=== PATIENT | male | born 1980 | race Caucasian/White ===

== ENCOUNTER → 2016-06-10 | Outpatient (CLI) | payer BC ==
[2016-06-10 16:50] LABS: HEMATOCRIT 42.5 % (42-52); MEAN CELL VOLUME 86.2 fL (80-100); MEAN CORPUSCULAR HEMOGLOBIN 29.6 pg (25-34); MEAN CORPUSCULAR HGB CONC 34.4 g/dl (32-36); MEAN PLATELET VOLUME 12.1 fL (7.4-10.4); PLATELET COUNT 207 K/uL (130-400); RED BLOOD COUNT 4.93 M/uL (4.7-6.1); WHITE BLOOD COUNT 8.28 K/uL (4.8-10.8)
[2016-06-10 16:58] LABS: ALT/SGPT 20 U/L (12-78); BLOOD UREA NITROGEN 11 mg/dl (7-18); BUN/CREATININE RATIO 11.5 (10-20); CALCIUM 9.3 mg/dl (8.5-10.1); CARBON DIOXIDE 29 mmol/L (21-32); CHLORIDE 103 mmol/L (98-107); CREATININE 0.97 mg/dl (0.60-1.40); GLUCOSE 95 mg/dl (70-99); SODIUM 138 mmol/L (136-145); URINE APPEARANCE TURBID (CLEAR); URINE BILIRUBIN NEG (NEG); URINE COLOR YELLOW; URINE EPITHELIAL CELL AUTO 0-5 /lpf (0-5); URINE NITRITE NEG (NEG); URINE SPECIFIC GRAVITY 1.025 (1.000-1.030); UROBILINOGEN NEG (NEG)
[2016-06-10 17:00] LABS: MANUAL MICROSCOPIC REQUIRED? NO; REVIEW REQ? NO
[2016-06-10 17:01] LABS: ALB/GLOB RATIO 1.4 (0.9-2); ALKALINE PHOSPHATASE 73 U/L (45-117); AST/SGOT 24 U/L (15-37)
== END | disposition home or self-care (01) ==
LOC: C.LABBC 15:19
PROVIDERS: ATTEND Physician Assistant
DX: R10.9 Unspecified abdominal pain (principal)

== ENCOUNTER → 2017-06-03 | Outpatient (CLI) | payer OTHER ==
[2017-06-03 14:39] LABS: BASO % 0.2 %; BASO ABS # 0.02 K/uL (0-0.2); EOS % 1.7 %; EOS ABS # 0.15 K/uL (0-0.5); HEMATOCRIT 43.7 % (42-52); HEMOGLOBIN 14.7 g/dL (14.0-18.0); IG# 0.01 K/uL (0.00-0.02); LYMPH % 14.7 %; LYMPH ABS # 1.27 K/uL (1.2-3.4); MEAN CELL VOLUME 88.5 fL (80-100); MEAN CORPUSCULAR HEMOGLOBIN 29.8 pg (25-34); MEAN CORPUSCULAR HGB CONC 33.6 g/dl (32-36); MEAN PLATELET VOLUME 12.1 fL (7.4-10.4); MONO % 8.4 %; MONO ABS # 0.73 K/uL (0.11-0.59); NEUT % 74.9 %; NEUT ABS # 6.47 K/uL (1.4-6.5); PLATELET COUNT 193 K/uL (130-400); RED CELL DISTRIBUTION WIDTH CV 13.1 % (11.5-14.5); RED CELL DISTRIBUTION WIDTH SD 42.1 fL (36.4-46.3); WHITE BLOOD COUNT 8.65 K/uL (4.8-10.8)
[2017-06-03 15:06] LABS: BLOOD UREA NITROGEN 13 mg/dl (7-18); CALCIUM 9.1 mg/dl (8.5-10.1); CARBON DIOXIDE 28 mmol/L (21-32); CREATININE 1.17 mg/dl (0.60-1.40); GLUCOSE 95 mg/dl (70-99); POTASSIUM 3.9 mmol/L (3.5-5.1); SODIUM 136 mmol/L (136-145)
== END | disposition home or self-care (01) ==
LOC: C.LAB1850 13:05
PROVIDERS: ATTEND Nurse Practitioner Adult Health
DX: R82.90 Unspecified abnormal findings in urine (principal); M54.5 Low back pain; R31.9 Hematuria, unspecified

== ENCOUNTER → 2017-06-04 | Outpatient (CLI) | payer OTHER ==
--- NOTE | 2017-06-04 11:32 | DIAGNOSTIC IMAGING REPORT ---
ABDOMEN AND PELVIS CT WITHOUT CONTRAST CT DOSE: 757.83 mGy.cm HISTORY: Acute low back pain with history of nephrolithiasis NEPHROLITHIASIS TECHNIQUE: Multiaxial CT images of the abdomen and pelvis were performed without contrast. A dose lowering technique was utilized adhering to the principles of ALARA. COMPARISON STUDY: Chest radiograph 10/15/2010. FINDINGS: Lung bases are generally clear. There is no pneumatosis or pneumoperitoneum identified. The imaged inferior cardiac chambers are unremarkable. Low attenuating 7 mm lesion of the anterior right hepatic lobe is indeterminate on this noncontrast study however statistically favors a hepatic cyst. No intrahepatic biliary ductal dilation. The spleen, pancreas, gallbladder and adrenal glands are within normal limits. There is mild hydroureteronephrosis secondary to a 3.0 x 2.5 x 2.5 mm calculus of the distal right ureter which is positioned approximately 1.0 cm proximal to the ureterovesicular junction. Mild right perinephric and periureteral inflammatory stranding. No additional nephrolithiasis or ureteral calculi. Bladder and prostate appear unremarkable. Aorta is normal in course and caliber. No bulky adenopathy. No bowel obstruction or focal bowel wall thickening. Mild colonic diverticulosis without diverticulitis. Normal appendix. Soft tissues are within normal limits. Bones appear intact. IMPRESSION: 1. Mild right-sided hydroureteronephrosis secondary to a 3 mm calculus of the distal right ureter, 1.0 cm proximal to the ureterovesicular junction. 2. No bowel obstruction or focal bowel wall thickening. Normal appendix. Electronically signed by: Jose Ramsey M.D. 06/04/2017 11:31 AM Dictated Date/Time: 06/04/2017 11:24 AM
== END | disposition home or self-care (01) ==
LOC: C.CTS 10:43
PROVIDERS: ATTEND Urology
DX: N20.1 Calculus of ureter (principal)

== ENCOUNTER → 2017-06-09 | Outpatient (CLI) | payer OTHER | END | disposition home or self-care (01) | LOC: C.LABSPEC 11:08 | PROVIDERS: ATTEND Nurse Practitioner Adult Health | DX: N20.0 Calculus of kidney (principal) ==

== ENCOUNTER → 2017-06-09 | Outpatient (CLI) | payer OTHER ==
--- NOTE | 2017-06-09 14:15 | DIAGNOSTIC IMAGING REPORT ---
[facility] CLINICAL HISTORY: N20.0 Nephrolithiasis nephrocalcinosis COMPARISON STUDY: CT abdomen and pelvis 06/04/2017 FINDINGS: No current evidence for nephrocalcinosis. 3 mm obstructing calculus procedure described in the CT study is not identified and potentially has passed. Nonobstructive bowel pattern. IMPRESSION: 1. No evidence for nephrocalcinosis. 2. Distal right ureteral calculus is not identified and potentially has passed. The above report was generated using voice recognition software. It may contain grammatical, syntax or spelling errors. Electronically signed by: Harshad Wallace M.D. 06/09/2017 2:14 PM Dictated Date/Time: 06/09/2017 2:12 PM
== END | disposition home or self-care (01) ==
LOC: C.RAD 13:31
PROVIDERS: ATTEND Urology
DX: N20.0 Calculus of kidney (principal)